=== PATIENT | male | born 1965 | race Caucasian/White ===

== ENCOUNTER → 2018-03-05 | Outpatient (REF) ==
[~2018-03-05] MED LIST: ABILIFY5 MG PO; AMOXICILLIN 8751 TAB PO; ASPIR-LOW81 MG PO; ASPIRIN 81M81 MG/TA2 PO; ASPIRIN E.C. 8181 MG PO; BACLOFEN INJ; BACLOFEN10 MG PO; BACTROBAN 22GM22 GM NAS; BACTROBAN 22GM22 GM TP; CARDI-OMEGA1000 MG PO; CIPRO 250MG TA250 MG PO; COLACE100 MG PO; COREG 25MG25 MG/TAB PO; COREG12.5 MG PO; COUMADIN 2MG2 MG/TAB PO; COUMADIN 3MG3 MG/TAB PO; COUMADIN 5MG5 MG/TAB PO; COUMADIN 77.5 MG/TAB PO; COUMADIN PO; COUMADIN5 MG PO; CYMBALTA 30MG30 MG PO; CYMBALTA 60MG60 MG PO; CYMBALTA60 MG PO; DEPAKOTE500 MG; FENTANYL 50MCG TD; FIBER0.52 GM PO; FISH OIL 1000MG1 CAP PO; FISH OIL CONC1000 MG PO; FLOMAX 0.40.4 MG/CAP PO; FLUOXETINE PO; GABAPENTIN100 MG PO; HCTZ 25MG25 MG PO; IRON325 MG PO; K-DUR 10 MEQ T10 MEQ PO; KEPPRA 500MG500 MG PO; KLONOPIN 0.5MG0.5 MG PO; LASIX 20MG TABL20 MG PO; LIDODERM PATCH TP; LIORESAL I500 MCG/ML IT; LORTAB 5/500 501 TAB; LORTAB 5/500 501 TAB PO; LORTAB 7.5/5001 TAB PO; MAG-OX 400400 MG/TAB PO; MEPERIDINE HCL50 MG PO; MIRALAX PA17 GM/Dose PO; NEURONTIN100 MG/CAP PO; NEURONTIN600 MG/TAB PO; NIACIN500 M3 PO; NIACIN500 M4 PO; NIACIN500 MG PO; NORCO 325 MG-51 TAB PO; OMEGA-3 FISH1200 MG PO; OMEGA-31000 MG PO; PAMELOR 25MG25 MG PO; PHENERGAN 25 TA25 MG PO; PRILOSEC 20MG20 MG PO; PRILOSEC10 MG PO; PRILOSEC40 MG PO; PROZAC 20MG20 MG PO; REGLAN 10MG10 MG/TAB PO; RISPERDAL 1M1 MG/TAB PO; RITALIN 5MG5 MG/TAB PO; ROXICODONE 55 MG/TAB PO; SIMVASTATIN10 MG PO; SIMVISTATIN PO; ST. JOSEPH81 M2 PO; TEGRETOL 1100 MG/TAB PO; TOPROL XL100 MG PO; TOPROL XL25 MG PO; TOPROL XL50 MG PO; TRICOR145 MG PO; TRILEPTAL600 MG PO; VIIBRYD40 MG PO; VIMPAT100 MG PO; VITAMIN B COMPL1 TA1 PO; WARFARIN SODIUM5 MG PO; WARFARIN10 MG PO; WELLBUTRIN SR150 M1 PO; XANAX .25M0.25 MG/TA PO; XANAX0.25 MG PO; ZIAC 2.5/6.25MG1 TAB PO; ZOCOR 20MG20 MG PO; ZYRTEC 10MG10 MG PO; [UNRECOGNIZED DRUG - OTHER]
== END ==
LOC: ZLAB.WCH 16:21
DX: Z01.89 Encounter for other specified special examinations (principal)
CPT/HCPCS: G0103

== ENCOUNTER → 2018-04-08 | Outpatient (REF) | LOC: ZLAB.WCH 18:33 | DX: Z01.89 Encounter for other specified special examinations (principal) ==

== ENCOUNTER → 2018-05-03 | Outpatient (REF) | LOC: ZLAB.WCH 09:37 | DX: Z01.89 Encounter for other specified special examinations (principal) ==

== ENCOUNTER → 2018-05-05 | Outpatient (REF) ==
[2018-05-05 18:22] LABS: VANCOMYCIN TROUGH 13.19 ug/mL (7.00-20.00)
[2018-05-05 18:40] LABS: GENTAMICIN TROUGH < 0.60 ug/mL (0.00-2.00)
== END ==
LOC: ZLAB.WCH 18:01
PROVIDERS: Nurse Practitioner Primary Care
DX: Z01.89 Encounter for other specified special examinations (principal)

== ENCOUNTER → 2018-05-09 | Outpatient (REF) | LOC: ZLAB.WCH 12:42 | DX: Z01.89 Encounter for other specified special examinations (principal) ==

== ENCOUNTER → 2018-05-11 | Outpatient (REF) | LOC: ZLAB.WCH 15:57 | DX: Z01.89 Encounter for other specified special examinations (principal) ==

== ENCOUNTER → 2018-05-13 | Outpatient (REF) | LOC: ZLAB.WCH 18:23 | DX: Z01.89 Encounter for other specified special examinations (principal) ==

== ENCOUNTER → 2018-12-24 | Outpatient (REF) | LOC: ZLAB.WCH 09:29 | DX: Z01.89 Encounter for other specified special examinations (principal) ==

== ENCOUNTER → 2019-11-25 | Outpatient (REF) | LOC: COL.CARD 10:23 | DX: R00.2 Palpitations (principal) ==

== ENCOUNTER 2020-11-07 08:06 | Outpatient (CLI) | payer MEDICARE, OTHER ==
[2020-11-07] VITALS (8 sets, daily range): BP systolic 98–130; BP diastolic 66–79; PULSE 67–79; TEMP 98
[~2020-11-07] VITALS: Ht 165.2 cm; Wt 79.5 kg
[~2020-11-07 08:06] MED LIST changes: +CENA K20 MEQ/15 PO; -IRON325 MG PO; -K-DUR 10 MEQ T10 MEQ PO; +NATURAL IRON65 MG PO
[2020-11-07 08:44] LABS: HEMATOCRIT 42.6 % (42.0-52.0); MEAN CELL VOLUME 91 fl (80.0-100.0); MEAN CORPUSCULAR HEMOGLOBIN 30 pg (27.0-31.0); MEAN CORPUSCULAR HGB CONC 33 g/dl (33.0-37.0); MEAN PLATELET VOLUME 9.5 fl (7.4-10.4); PLATELET COUNT 194 K/mm3 (130-400); RED BLOOD COUNT 4.66 M/mm3 (4.20-5.60); REDCELL DISTRIBUTION WIDTH-CV 13.6 % (11.5-14.5)
[2020-11-07] MEDS ORDERED: MASON NATURAL2000 IU PO (08:45)
[2020-11-07] MEDS ORDERED: B-121000 MCG PO (08:46)
[2020-11-07] MEDS ORDERED: EMGALITY120 MG/1 M SQ (08:47)
[2020-11-07] MEDS ORDERED: REPATHA SU140 MG/1 M SQ (08:48)
[2020-11-07] MEDS ORDERED: ZOFRAN ODT4 MG PO (08:50)
[2020-11-07] MEDS ORDERED: CLARITIN 1010 MG/TAB PO (08:50)
[2020-11-07] MEDS ORDERED: TOPROL XL 25MG25 MG PO (08:51)
[2020-11-07 08:52] LABS: INR 2.3 (0.8-3.0); PROTHROMBIN TIME 25.8 SECONDS (9.7-12.8)
[2020-11-07] MEDS ORDERED: COUMADIN 22.5 MG/TAB PO (08:53)
[2020-11-07] MEDS ORDERED: COUMADIN 1MG1 MG/TAB PO (08:54)
[2020-11-07 08:58] LABS: CREATININE, serum 1.23 (0.66-1.25)
--- NOTE | 2020-11-07 10:42 | NUR ---
Report from Ml ISRAEL. Pt awake and able use the urinal. Dr. Sheehan in to see pt/family. VSS.
--- NOTE | 2020-11-07 12:30 | NUR ---
INT discontinued intact. Discharge instructions given. Transferred to private car by glenis
== END 2020-11-07 12:35 | disposition home or self-care (01) ==
LOC: COL.RAD 08:06
PROVIDERS: Internal Medicine Adult Congenital Heart Disease
DX: I08.3 Combined rheumatic disorders of mitral, aortic and tricuspid valves (principal); I44.7 Left bundle-branch block, unspecified; Z95.2 Presence of prosthetic heart valve
CPT/HCPCS: J2704

== ENCOUNTER → 2020-11-17 | Outpatient (REF) ==
[~2020-11-17] MED LIST changes: +B-121000 MCG PO; +CLARITIN 1010 MG/TAB PO; +COUMADIN 1MG1 MG/TAB PO; +COUMADIN 22.5 MG/TAB PO; +EMGALITY120 MG/1 M SQ; +MASON NATURAL2000 IU PO; +REPATHA SU140 MG/1 M SQ; +TOPROL XL 25MG25 MG PO; +ZOFRAN ODT4 MG PO
== END ==
LOC: ZLAB.WCH 09:25
DX: Z01.89 Encounter for other specified special examinations (principal)

== ENCOUNTER → 2020-12-08 | Outpatient (REF) | LOC: ZLAB.WCH 19:04 | DX: Z01.89 Encounter for other specified special examinations (principal) ==

== ENCOUNTER 2021-03-09 14:38 | Outpatient (CLI) | payer MEDICARE, OTHER ==
[~2021-03-09] VITALS: Ht 165.1 cm; Wt 78.2 kg
[2021-03-09] VITALS (7 sets, daily range): BP systolic 140–181; BP diastolic 66–96; PULSE 70–101; TEMP 98.4–98.7
== END 2021-03-09 15:15 | disposition home or self-care (01) ==
LOC: EUO 14:38
DX: U07.1 COVID-19 (principal)
CPT/HCPCS: Q0244

== ENCOUNTER 2021-05-10 06:59 | Outpatient (CLI) | payer MEDICARE, OTHER ==
[~2021-05-10] VITALS: Ht 165.1 cm; Wt 78.0 kg
[2021-05-10] VITALS (8 sets, daily range): BP systolic 139–179; BP diastolic 81–96; PULSE 92–111; TEMP 98.6
[2021-05-10] MEDS ORDERED: MASON NATURAL2000 IU PO (07:35)
[2021-05-10] MEDS ORDERED: TOPROL XL 25MG25 MG PO (07:36)
[2021-05-10] MEDS ORDERED: REPATHA SU140 MG/1 M SQ (07:38)
[2021-05-10 08:05] LABS: HEMATOCRIT 43.1 % (42.0-52.0); HEMOGLOBIN 14.5 g/dl (13.5-18.0); MEAN CELL VOLUME 90 fl (80.0-100.0); MEAN CORPUSCULAR HEMOGLOBIN 30 pg (27.0-31.0); MEAN CORPUSCULAR HGB CONC 34 g/dl (33.0-37.0); MEAN PLATELET VOLUME 9.8 fl (7.4-10.4); PLATELET COUNT 192 K/mm3 (130-400); RED BLOOD COUNT 4.81 M/mm3 (4.20-5.60)
[2021-05-10 08:11] LABS: INR 2.6 (0.8-3.0); PROTHROMBIN TIME 28.8 SECONDS (9.7-12.8)
[2021-05-10 08:26] LABS: CALCIUM 9.4 mg/dL (8.4-10.2); CREATININE, serum 1.36 mg/dL (0.72-1.25)
--- NOTE | 2021-05-10 10:00 | NUR ---
Report from Lenka ISRAEL. in room, pt moves hand when she talks to him and rubs his chest. VS baseline.
--- NOTE | 2021-05-10 10:15 | NUR ---
Pt eyes open and listening to phone held by . Will continue to monitor
--- NOTE | 2021-05-10 10:30 | NUR ---
PT awake and answering questions. VSS
--- NOTE | 2021-05-10 12:20 | NUR ---
PT to exit at this time. I reviewed dc/fu instructions with pt's and pt. Pt's verbalized understanding and denies questions at this time. IV dc'd and dressing applied. Pt has been able to drink with no problem swallowing. He is able to stand and transfer as is his norm to wheelchair and again into vehicle. no concerns at time of departure.
== END 2021-05-10 12:20 | disposition home or self-care (01) ==
LOC: COL.RAD 06:59
PROVIDERS: Internal Medicine Adult Congenital Heart Disease
DX: I08.1 Rheumatic disorders of both mitral and tricuspid valves (principal); I25.10 Atherosclerotic heart disease of native coronary artery without angina pectoris; Z95.2 Presence of prosthetic heart valve
CPT/HCPCS: J2704

== ENCOUNTER 2023-09-25 10:25 | Day surgery (SDC) | payer MEDICARE, OTHER ==
[~2023-09-25] VITALS: Ht 172.8 cm; Wt 74.8 kg
[2023-09-25] VITALS (7 sets, daily range): BP systolic 118–135; BP diastolic 58–69; PULSE 55–65; TEMP 97.6
[~2023-09-25 10:25] MED LIST changes: -COUMADIN 1MG1 MG/TAB PO; +LR 1,000 ML IV SCH; -MAG-OX 400400 MG/TAB PO; +MAGNESIUM500 MG PO; +VITAMIN D31000 I1 PO
[2023-09-25] MEDS ORDERED: NS Flush 10 ML SYRINGE PRN ICA (10:45)
[2023-09-25] MEDS ORDERED: 1/2 NS 1,000 ML IV SCH (10:45)
[2023-09-25 11:14] LABS: INR 1.8 (0.8-3.0)
[2023-09-25 11:15] LABS: HEMATOCRIT 43.1 % (42.0-52.0); MEAN CELL VOLUME 93 fl (80.0-100.0); MEAN CORPUSCULAR HEMOGLOBIN 30 pg (27-31); MEAN CORPUSCULAR HGB CONC 33 g/dl (33.0-37.0); MEAN PLATELET VOLUME 10.1 fl (7.4-10.4); PLATELET COUNT 215 K/mm3 (130-400); RED BLOOD COUNT 4.64 M/mm3 (4.20-5.60); REDCELL DISTRIBUTION WIDTH-CV 13.1 % (11.5-14.5)
[2023-09-25] MEDS ORDERED: SYNTHROID0.05 MG/TA PO (11:29)
[2023-09-25] MEDS ORDERED: FARXIGA10 PO (11:30)
[2023-09-25] MEDS ORDERED: TRICOR145 MG PO (11:30)
[2023-09-25] MEDS ORDERED: ZESTRIL 5MG5 MG PO (11:32)
[2023-09-25 11:34] LABS: CALCIUM 9.4 mg/dL (8.4-10.2); CREATININE, serum 1.8 mg/dL (0.72-1.25); POTASSIUM 4.5 mmol/L (3.5-4.5)
[2023-09-25] MEDS ORDERED: NURTEC ODT75 MG PO (11:37)
[2023-09-25] MEDS ORDERED: NATURAL FISH1200 MG PO (11:38)
[2023-09-25] MEDS ORDERED: IMITREX100 MG PO (11:39)
[2023-09-25] MEDS ORDERED: ZOLOFT 50MG50 MG PO (11:39)
[2023-09-25] MEDS ORDERED: VITAMIN C500 MG PO (11:42)
--- NOTE | 2023-09-25 12:05 | NUR ---
Dr. Mahmood notified prior to procedure chemistry not on chart, also discussed in time out with anesthesia.
--- NOTE | 2023-09-25 12:37 | NUR ---
Bedside report completed with Jonathon ISRAEL, and patient's Cyndy. Patient became awake and talked as Cyndy entered room. First set of post op-vitals reviewed with Jonathon ISRAEL. Call light within reach. Total of 100 ml of fluid out of bag. Jonathon ISRAEL denies questions/concerns at this time. [phone] for questions.
--- NOTE | 2023-09-25 13:50 | NUR ---
DC instructions reviewed with pt and , both express understanding. Pt was initially very drowsy following AZUL, but once entered room and spoke with him he became awake and alert. He ate cup of pudding and drank soda. No issues with swallowing. He is able to sit self up on edge of bed and is assisted to dress. IV DC'd, site is wrapped with coban. He transfers self to wheelchair, and is assisted into restroom. No c/o dizziness with activity, and gait is at baseline. He is then assisted out to 's car by wheelchair with belongings.
[2023-09-25] MEDS ORDERED: NS Flush 10 ML SYRINGE BID ICA SCH (21:00)
== END 2023-09-25 13:50 | disposition home or self-care (01) ==
LOC: COL.CAR 10:25
PROVIDERS: Internal Medicine Cardiovascular Disease
DX: I08.3 Combined rheumatic disorders of mitral, aortic and tricuspid valves (principal); I70.0 Atherosclerosis of aorta
CPT/HCPCS: J2704